=== PATIENT | male | born 1985 | race Caucasian/White ===

== ENCOUNTER → 2016-10-02 | Outpatient (CLI) | payer OTHER ==
[~2016-10-02] MED LIST: DARV100T; MOTR200T4; TYLENOL #3
== END ==
LOC: M OUTALCOH 09:41
PROVIDERS: ATTEND Psychiatry & Neurology Psychiatry
DX: Z13.9 Encounter for screening, unspecified (principal); F12.20 Cannabis dependence, uncomplicated

== ENCOUNTER 2016-11-01 14:00 | Outpatient (RCR) | payer OTHER | END 2016-11-04 | LOC: M OUTALCOH 14:00 | PROVIDERS: ATTEND Psychiatry & Neurology Psychiatry | DX: F12.20 Cannabis dependence, uncomplicated (principal); F17.200 Nicotine dependence, unspecified, uncomplicated ==

== ENCOUNTER → 2016-12-05 | Outpatient (RCR) | payer OTHER | LOC: M OUTALCOH 11-06 09:00 | PROVIDERS: ATTEND Psychiatry & Neurology Psychiatry | DX: F12.20 Cannabis dependence, uncomplicated (principal); F17.200 Nicotine dependence, unspecified, uncomplicated ==

== ENCOUNTER 2017-01-02 16:00 | Outpatient (RCR) | payer OTHER | END 2017-01-04 | LOC: M OUTALCOH 16:00 | PROVIDERS: ATTEND Psychiatry & Neurology Psychiatry | DX: F12.20 Cannabis dependence, uncomplicated (principal); F17.200 Nicotine dependence, unspecified, uncomplicated ==

== ENCOUNTER 2017-01-02 19:50 | Emergency (ER) | payer OTHER ==
[~2017-01-02] VITALS: Ht 167.6 cm; Wt 64.8 kg
[2017-01-02] MEDS ORDERED: IBUPROFEN 600 MG TAB PO ONE (21:00)
[2017-01-02 21:14] VITALS: BP 117/78
== END 2017-01-02 21:27 | disposition home or self-care (01) ==
LOC: M ED 19:50
DX: S50.12XA Contusion of left forearm, initial encounter (principal); X58.XXXA Exposure to other specified factors, initial encounter; Y92.019 Unspecified place in single-family (private) house as the place of occurrence of the external cause; Y93.9 Activity, unspecified; Y99.8 Other external cause status

== ENCOUNTER 2017-02-01 15:00 | Outpatient (RCR) | payer MEDICAID | END 2017-02-04 | LOC: M OUTALCOH 15:00 | PROVIDERS: ATTEND Psychiatry & Neurology Psychiatry | DX: F12.20 Cannabis dependence, uncomplicated (principal); F17.200 Nicotine dependence, unspecified, uncomplicated ==

== ENCOUNTER 2017-02-28 08:00 | Outpatient (RCR) | payer MEDICAID | END 2017-03-07 | LOC: M OUTALCOH 08:00 | PROVIDERS: ATTEND Psychiatry & Neurology Psychiatry | DX: F12.20 Cannabis dependence, uncomplicated (principal); F17.200 Nicotine dependence, unspecified, uncomplicated ==

== ENCOUNTER 2017-04-24 11:30 | Outpatient (RCR) | payer MEDICAID, SELFPAY | END 2017-05-07 | LOC: M OUTALCOH 11:30 | PROVIDERS: ATTEND Psychiatry & Neurology Psychiatry | DX: F12.20 Cannabis dependence, uncomplicated (principal); F17.200 Nicotine dependence, unspecified, uncomplicated ==

== ENCOUNTER 2017-08-20 21:07 | Emergency (ER) | payer MEDICAID | END 2017-08-20 22:12 | disposition left against medical advice (07) | LOC: M ED 21:07 | DX: R07.89 Other chest pain (principal); Z53.21 Procedure and treatment not carried out due to patient leaving prior to being seen by health care provider ==

== ENCOUNTER → 2017-09-09 | Outpatient (CLI) | payer MEDICAID | LOC: M OUTALCOH 07:59 | DX: F12.20 Cannabis dependence, uncomplicated (principal) ==

== ENCOUNTER 2017-09-19 09:11 | Outpatient (RCR) | payer MEDICAID | END 2017-10-05 | LOC: M OUTALCOH 09-24 16:00 | DX: F12.20 Cannabis dependence, uncomplicated (principal); F17.200 Nicotine dependence, unspecified, uncomplicated ==

== ENCOUNTER 2017-10-03 00:34 | Emergency (ER) | payer OTHER, MEDICAID ==
[2017-10-03] MEDS: KETOROLAC 60 MG/2 ML VIAL (J1885) IM (03:07)
== END 2017-10-03 04:13 | disposition home or self-care (01) ==
LOC: M ED 00:34
DX: M54.5 Low back pain (principal); Z76.5 Malingerer [conscious simulation]; J45.909 Unspecified asthma, uncomplicated; M54.2 Cervicalgia; G89.29 Other chronic pain; F17.200 Nicotine dependence, unspecified, uncomplicated
CPT/HCPCS: J1885

== ENCOUNTER 2017-10-09 14:51 | Outpatient (RCR) | payer MEDICAID | END 2017-11-04 | LOC: M OUTALCOH 14:51 | DX: F12.20 Cannabis dependence, uncomplicated (principal); F17.200 Nicotine dependence, unspecified, uncomplicated ==

== ENCOUNTER 2017-11-06 09:16 | Outpatient (RCR) | payer MEDICAID | END 2017-12-05 | LOC: M OUTALCOH 11-20 16:00 | DX: F12.20 Cannabis dependence, uncomplicated (principal); F17.200 Nicotine dependence, unspecified, uncomplicated ==

== ENCOUNTER 2017-12-19 15:02 | Outpatient (RCR) | payer MEDICAID | END 2018-01-04 | LOC: M OUTALCOH 01-03 13:00 | DX: F12.20 Cannabis dependence, uncomplicated (principal); F17.200 Nicotine dependence, unspecified, uncomplicated ==

== ENCOUNTER 2018-01-22 13:00 | Outpatient (RCR) | payer MEDICAID | END 2018-02-04 | LOC: M OUTALCOH 01-30 14:00 | DX: F12.20 Cannabis dependence, uncomplicated (principal); F17.200 Nicotine dependence, unspecified, uncomplicated ==

== ENCOUNTER 2018-12-01 01:44 | Emergency (ER) | payer MEDICAID, OTHER ==
[~2018-12-01] VITALS: Ht 167.6 cm; Wt 56.8 kg
[~2018-12-01 01:44] MED LIST changes: +KETO10TAB PO
[2018-12-01] MEDS ORDERED: SUBO8MIS (01:49)
[2018-12-01] MEDS ORDERED: ACET-839 PO (01:49)
[2018-12-01] MEDS ORDERED: BUPIVACAINE HCL 0.5% 10 ML VIAL SC ONE (04:30)
[2018-12-01] MEDS ORDERED: LIDOCAINE 1% SDV INJ 30 ML VIAL SC SCH (04:30)
[2018-12-01] MEDS: LIDOCAINE 1% MDV 20ML VIAL SC SCH ×2 (04:39→04:44)
[2018-12-01] MEDS ORDERED: IBUP80TA PO (04:41)
[2018-12-01] MEDS ORDERED: AUGM875T28 PO (04:41)
[2018-12-01] MEDS ORDERED: AUGMENTIN 875 MG TAB PO ONE (04:45)
[2018-12-01] MEDS ORDERED: KETOROLAC 60 MG/2 ML VIAL (J1885) IM ONE (04:45)
[2018-12-01 04:57] VITALS: BP 120/80
== END 2018-12-01 05:01 | disposition home or self-care (01) ==
LOC: M ED 01:44
DX: K04.7 Periapical abscess without sinus (principal); Z79.891 Long term (current) use of opiate analgesic; F17.210 Nicotine dependence, cigarettes, uncomplicated
CPT/HCPCS: 96372; 99283; J1885

== ENCOUNTER → 2019-07-20 | Outpatient (REF) | payer OTHER, MEDICAID ==
[~2019-07-20] MED LIST changes: +ACET-839 PO; +AUGM875T28 PO; +IBUP80TA PO; +SUBO8MIS
[2019-07-20 19:08] LABS: ALBUMIN 3.9 GM/DL (3.2-5.2); ALT/SGPT 21 U/L (12-78); BILIRUBIN,TOTAL 0.3 MG/DL (0.2-1.0); BLOOD UREA NITROGEN 17 MG/DL (7-18); CALCIUM LEVEL 9.1 MG/DL (8.5-10.1); CARBON DIOXIDE LEVEL 30 MEQ/L (21-32); CHLORIDE LEVEL 105 MEQ/L (98-107); CHOLESTEROL LEVEL 111 MG/DL (<200); CREATININE FOR GFR 0.94 MG/DL (0.70-1.30); FREE T4 0.74 NG/DL (0.76-1.46); GLOMERULAR FILTRATION RATE > 60.0 (>60); GLUCOSE, FASTING 84 MG/DL (70-100); HDL CHOLESTEROL 37 MG/DL (>40); LDL CHOLESTEROL 57 MG/DL (<100); NON-HDL-C 74 MG/DL; SODIUM LEVEL 140 MEQ/L (136-145); THYROID STIMULATING HORMONE 0.646 uIU/ML (0.358-3.740); TOTAL PROTEIN 6.9 GM/DL (6.4-8.2); TRIGLYCERIDES LEVEL 86 MG/DL (<150); URIC ACID 2.4 MG/DL (3.5-7.2)
[2019-07-20 19:09] LABS: TOTAL 25(OH) VITAMIN D 35.3 NG/ML (30.0-100.0)
[2019-07-20 19:10] LABS: BASO % 0.5 % (0.0-1.0); EOS # 0.2 10^3/uL (0.0-0.5); EOS % 2.8 % (0.0-3.0); HEMATOCRIT 44.1 % (42.0-52.0); HEMOGLOBIN 13.9 g/dl (13.5-17.5); LYMPH # 1.6 10^3/uL (1.5-5.0); LYMPH % 19.1 % (24.0-44.0); MEAN CORPUSCULAR HEMOGLOBIN 27.6 pg (27.0-33.0); MEAN CORPUSCULAR HGB CONC 31.5 g/dl (32.0-36.5); MEAN CORPUSCULAR VOLUME 87.5 fl (80.0-96.0); MONO # 0.5 10^3/uL (0.0-0.8); MONO % 5.8 % (0.0-5.0); NEUTROPHILS # 5.9 10^3/uL (1.5-8.5); NEUTROPHILS % 71.6 % (36.0-66.0); PLATELET COUNT, AUTOMATED 159 10^3/uL (150-450); RED BLOOD COUNT 5.04 10^6/uL (4.30-6.10); WHITE BLOOD COUNT 8.2 10^3/uL (4.0-10.0)
[2019-07-20 19:27] LABS: HEMOGLOBIN A1c 5.7 %
== END ==
LOC: M LAB REF 17:15
PROVIDERS: ATTEND Nurse Practitioner Family
DX: M79.673 Pain in unspecified foot (principal); Z13.9 Encounter for screening, unspecified; R06.09 Other forms of dyspnea; F17.200 Nicotine dependence, unspecified, uncomplicated; Z00.01 Encounter for general adult medical examination with abnormal findings; F41.8 Other specified anxiety disorders

== ENCOUNTER 2021-03-14 08:23 | Emergency (ER) | payer OTHER, MEDICAID ==
[~2021-03-14] VITALS: Ht 167.6 cm; Wt 59.1 kg
[2021-03-14] MEDS ORDERED: ADDE20TA PO (08:41)
[2021-03-14] MEDS ORDERED: ACETAMINOPHEN TAB 650MG DOSE (2X325MG) PO ONE (08:50)
[2021-03-14] MEDS ORDERED: NS 500 ML IV ONE (08:50)
[2021-03-14 09:19] LABS: BASO % 0.4 % (0.0-1.0); EOS # 0.2 10^3/uL (0.0-0.5); HEMATOCRIT 37.8 % (42.0-52.0); HEMOGLOBIN 13.1 g/dl (13.5-17.5); LYMPH # 1.1 10^3/uL (1.5-5.0); LYMPH % 15.5 % (24.0-44.0); MEAN CORPUSCULAR HEMOGLOBIN 30.3 pg (27.0-33.0); MEAN CORPUSCULAR HGB CONC 34.7 g/dl (32.0-36.5); MEAN CORPUSCULAR VOLUME 87.5 fl (80.0-96.0); MONO # 0.7 10^3/uL (0.0-0.8); MONO % 10.6 % (2.0-8.0); NEUTROPHILS # 4.9 10^3/uL (1.5-8.5); NEUTROPHILS % 70.4 % (36.0-66.0); PLATELET COUNT, AUTOMATED 154 10^3/uL (150-450); RED BLOOD COUNT 4.32 10^6/uL (4.30-6.10)
--- NOTE | 2021-03-14 09:41 | REP ---
INDICATION: R leg pain swelling r/o dvt. COMPARISON: None. TECHNIQUE: Multiple ultrasonographic images of the deep venous structures of the right lower extremity were obtained from the inguinal ligament to the ankle. Venous compression techniques, color doppler imaging, and augmentation techniques were also obtained where appropriate. As per the ACR guidelines the anterior tibial vein can not be effectively evaluated. Only compression techniques in the calf on the peroneal and posterior tibial veins was attempted/performed. FINDINGS: There is no abnormal echogenic material seen within any of the visualized deep venous structures that would suggest acute thrombosis. Coaptation is unremarkable throughout. Doppler interrogation shows an expected response to respiratory variability and augmentation in the thigh. Compression techniques in the calf were unobtainable. The color flow images show what appears to be a normal vascular pattern throughout the thigh. In the right groin a 2.9 x 0.8 x 2.6 cm sized solid nodule with peripheral decreased echoes and central increased echoes was identified IMPRESSION: There is no ultrasonographic evidence of deep venous thrombosis involving any of the visualized deep venous structures of the right lower extremity as described above. Due to technical parameters calf vein DVT can not be ruled out. Right groin lymph node as described above. <Electronically signed by Herve Mcmanus > 03/14/21 [id number]
[2021-03-14 10:00] LABS: ERYTHROCYTE SEDIMENTATION RATE 25 mm/hr (0-15)
[2021-03-14 10:08] LABS: BLOOD UREA NITROGEN 18 MG/DL (7-18); C REACTIVE PROTEIN QUANTITATIV 1.09 MG/DL (0.00-0.30); CALCIUM LEVEL 8.4 MG/DL (8.5-10.1); CARBON DIOXIDE LEVEL 30 MEQ/L (21-32); CHLORIDE LEVEL 105 MEQ/L (98-107); CREATININE FOR GFR 0.96 MG/DL (0.70-1.30); GLOMERULAR FILTRATION RATE > 60.0 (>60); GLUCOSE, FASTING 101 MG/DL (70-100); POTASSIUM SERUM 3.8 MEQ/L (3.5-5.1); SODIUM LEVEL 139 MEQ/L (136-145)
[2021-03-14] MEDS ORDERED: ceFAZolin SOD 1 GM in D5W MINI-BAG PLUS 50 ML IV ONE (10:35)
[2021-03-14] MEDS ORDERED: CEPH500C PO (10:40)
[2021-03-14 11:15] VITALS: BP 126/66
== END 2021-03-14 11:40 | disposition home or self-care (01) ==
LOC: M ED 08:23 → EDBD 08:23 → M ED 11:40
DX: L03.115 Cellulitis of right lower limb (principal); F11.20 Opioid dependence, uncomplicated; F17.200 Nicotine dependence, unspecified, uncomplicated; R19.09 Other intra-abdominal and pelvic swelling, mass and lump
CPT/HCPCS: 80048; 85025; 85652; 86140; 87040; 93041; 93971; 94760; 96365; 99285; J0690

== ENCOUNTER 2021-03-18 13:19 | Inpatient (IN) | payer MEDICAID, OTHER ==
[~2021-03-18] VITALS: Ht 167.6 cm; Wt 62.2 kg
[~2021-03-18 13:19] MED LIST changes: +ADDE20TA PO; +CEPH500C PO; -SUBO8MIS; +SUBO8MIS SL
[2021-03-18] MEDS: NS 1,000 ML IV SCH (15:23)
[2021-03-18 15:38] LABS: BASO % 0.5 % (0.0-1.0); EOS # 0.3 10^3/uL (0.0-0.5); HEMATOCRIT 39.7 % (42.0-52.0); HEMOGLOBIN 13.6 g/dl (13.5-17.5); LYMPH # 1.3 10^3/uL (1.5-5.0); LYMPH % 17.9 % (24.0-44.0); MEAN CORPUSCULAR HEMOGLOBIN 30.4 pg (27.0-33.0); MEAN CORPUSCULAR HGB CONC 34.3 g/dl (32.0-36.5); MEAN CORPUSCULAR VOLUME 88.6 fl (80.0-96.0); MONO # 0.5 10^3/uL (0.0-0.8); NEUTROPHILS # 5.1 10^3/uL (1.5-8.5); NEUTROPHILS % 70.2 % (36.0-66.0); PLATELET COUNT, AUTOMATED 204 10^3/uL (150-450); RED BLOOD COUNT 4.48 10^6/uL (4.30-6.10); WHITE BLOOD COUNT 7.3 10^3/uL (4.0-10.0)
--- NOTE | 2021-03-18 16:00 | REP ---
INDICATION: R LOWER LEG SWELLING R/O DVT COMPARISON: 03/14/2021. TECHNIQUE: Real time compression and duplex Doppler interrogation of the right lower extremity deep venous system is performed, including the left common femoral vein.Compression of the right peroneal and posterior tibial veins is performed. FINDINGS: The right common femoral, superficial femoral and popliteal veins are fully compressible with transducer pressure and demonstrate normal spontaneous and phasic flow, without evidence of deep venous thrombosis.The left common femoral vein demonstrates no thrombus.The visualized right peroneal and posterior tibial veins demonstrate no thrombus. IMPRESSION: No evidence of deep venous thrombosis of the right lower extremity femoral popliteal venous system.The visualized right peroneal and posterior tibial veins demonstrate no thrombus. <Electronically signed by Sanjay Rose > 03/18/21 [id number]
[2021-03-18 16:03] LABS: ALBUMIN 3.3 GM/DL (3.2-5.2); ALT/SGPT 35 U/L (12-78); AMYLASE 49 U/L (25-115); BILIRUBIN,DIRECT < 0.1 MG/DL (0.0-0.2); BILIRUBIN,TOTAL 0.2 MG/DL (0.2-1.0); BLOOD UREA NITROGEN 15 MG/DL (7-18); C REACTIVE PROTEIN QUANTITATIV 0.84 MG/DL (0.00-0.30); CALCIUM LEVEL 8.8 MG/DL (8.5-10.1); CARBON DIOXIDE LEVEL 33 MEQ/L (21-32); CHLORIDE LEVEL 104 MEQ/L (98-107); CREATININE FOR GFR 0.94 MG/DL (0.70-1.30); GLOMERULAR FILTRATION RATE > 60.0 (>60); GLUCOSE, FASTING 113 MG/DL (70-100); POTASSIUM SERUM 4.2 MEQ/L (3.5-5.1); SODIUM LEVEL 141 MEQ/L (136-145); TOTAL PROTEIN 6.8 GM/DL (6.4-8.2)
--- NOTE | 2021-03-18 16:13 | REP ---
INDICATION: R LOWER LEG PAIN, SWELLING, ATRAUMATIC COMPARISON: None. TECHNIQUE: AP and lateral right lower leg. FINDINGS: There is no evidence of acute fracture, dislocation, or intrinsic bone disease. IMPRESSION: Negative exam right lower leg. <Electronically signed by Sanjay Rose > 03/18/21 [id number]
--- NOTE | 2021-03-18 16:14 | REP ---
INDICATION: R LOWER LEG PAIN, SWELLING, ATRAUMATIC COMPARISON: None. TECHNIQUE: Four views right ankle. FINDINGS: There is no evidence of acute fracture, dislocation, or intrinsic bone disease.The ankle mortise is anatomic. IMPRESSION: Negative right ankle series. <Electronically signed by Sanjay Rose > 03/18/21 [id number]
--- NOTE | 2021-03-18 16:16 | REP ---
INDICATION: R LOWER LEG PAIN, SWELLING, ATRAUMATIC COMPARISON: 02/06/2015. TECHNIQUE: Four views right foot. FINDINGS: There is no evidence of acute fracture, dislocation, or intrinsic bone disease. IMPRESSION: Negative right foot series. <Electronically signed by Sanjay Rose > 03/18/21 [id number]
[2021-03-18] MEDS ORDERED: VANCOMYCIN HCL 1,250 MG in IV FLUID PLACE HOLDER 1 EA IV ONE (16:35)
[2021-03-18] MEDS ORDERED: cefTRIAXone SOD 2 GM in D5W MINI-BAG PLUS 50 ML IV ONE (16:35)
[2021-03-18] MEDS ORDERED: IBUPROFEN 800 MG TAB PO ONE (16:35)
[2021-03-18 17:49] LABS: RSV AMPLIFICATION NEGATIVE (NEGATIVE)
[2021-03-18] MEDS ORDERED: VANCOMYCIN HCL 750 MG, VIAL MATE ADAPTER 1 EACH in NS 250 ML IV ONE (18:00)
[2021-03-18] MEDS ORDERED: CEPH500C PO (18:45)
[2021-03-18] MEDS ORDERED: med rec comment (18:46)
[2021-03-18] MEDS ORDERED: HOME MED LIST COMPLETE! XX SCH (18:50)
[2021-03-18] MEDS ORDERED: VANCOMYCIN HCL 500 MG in D5W MINI-BAG PLUS 100 ML IV ONE (19:00)
[2021-03-18 20:30] VITALS: BP 127/81
[2021-03-18] MEDS ORDERED: ACETAMINOPHEN TAB 650MG DOSE (2X325MG) PO PRN (21:15)
[2021-03-18] MEDS ORDERED: PERCOCET 5MG/325MG TAB PO PRN (21:15)
[2021-03-18] MEDS: NICOTINE 21MG/24HR 1 EA TRANSDERMAL TD SCH (22:28)
[2021-03-18] MEDS: KETOROLAC 30 MG/ML 1ML VIAL IV PRN (22:29)
[2021-03-19] MEDS: NS 1,000 ML IV SCH ×2 (03:04→11:21)
[2021-03-19] MEDS: CEFTAROLINE FOSAMIL 600 MG in D5W MINI-BAG PLUS 50 ML IV SCH ×2 (04:16→17:17)
[2021-03-19 05:44] LABS: MEAN CORPUSCULAR HGB CONC 34.2 g/dl (32.0-36.5); MEAN CORPUSCULAR VOLUME 87.8 fl (80.0-96.0); PLATELET COUNT, AUTOMATED 188 10^3/uL (150-450); RED BLOOD COUNT 4.33 10^6/uL (4.30-6.10); WHITE BLOOD COUNT 6.3 10^3/uL (4.0-10.0)
[2021-03-19 06:00] VITALS: BP 120/76
[2021-03-19 06:15] LABS: BLOOD UREA NITROGEN 13 MG/DL (7-18); CALCIUM LEVEL 8.3 MG/DL (8.5-10.1); CARBON DIOXIDE LEVEL 28 MEQ/L (21-32); CHLORIDE LEVEL 108 MEQ/L (98-107); CREATININE FOR GFR 0.78 MG/DL (0.70-1.30); GLOMERULAR FILTRATION RATE > 60.0 (>60); GLUCOSE, FASTING 108 MG/DL (70-100); POTASSIUM SERUM 4.3 MEQ/L (3.5-5.1); SODIUM LEVEL 141 MEQ/L (136-145)
[2021-03-19] MEDS: NICOTINE 21MG/24HR 1 EA TRANSDERMAL TD SCH (08:12)
[2021-03-19] MEDS: ENOXAPARIN 40MG/0.4ML SYRINGE (J1650 PER 10MG) SC SCH (08:12)
--- NOTE | 2021-03-19 09:26 | HPE ---
HISTORY AND PHYSICAL DATE OF ADMISSION: 03/18/2021 CHIEF COMPLAINT: Cellulitis right lower extremity. HISTORY: Chu Gomez is being admitted with cellulitis of his right lower extremity. History is obtained from the patient and there are some inconsistencies so his history is somewhat suspect. He says for 2 weeks he has had right lower extremity redness, pain, and swelling. He says that this has not been treated or evaluated. However, he was in the emergency room 4 days ago, given a gram of Ancef, and discharged on Keflex and had lab work done. He does not recall this having occurred. He has a history of chronic substance abuse and attention deficit hyperactivity disorder (ADHD). He is on Suboxone and Adderall from Dr. Bonilla. He had been treated in the emergency room in the last few years. He has chronic low back pain. MEDICATIONS: - Suboxone 8 mg/2 mg one film dose apparently daily - Adderall 20 mg twice a day ALLERGIES: Unknown. REVIEW OF SYSTEMS: No fever, chills, night sweats, chest pain, or shortness of breath. FAMILY HISTORY: Noncontributory. PHYSICAL EXAMINATION: Vital signs per flow sheet, he is afebrile. General appearance: Alert, conversant, in no distress. HEENT: Unremarkable. Lungs: Clear. Heart: Regular rate, without murmur. Abdomen: Soft, nontender, no masses. No peripheral edema. Normal strength in the arms and legs. Right pretibial area has a confluent erythematous rash, slightly warm. LABORATORY DATA: CBC unremarkable, white count normal. Electrolytes unremarkable. Hemoglobin A1c done a year ago was 5.7, random blood sugar is normal. IMPRESSION: 1. Cellulitis right lower extremity. He will be admitted to a medical bed and started on ceftaroline. Will get a methicillin-resistant Staphylococcus aureus (MRSA) screen, if it is negative he can be switched back over to Ancef. 2. Substance abuse. Continue current regimen. 3. Attention deficit hyperactivity disorder (ADHD). Continue his Adderall.
[2021-03-19] MEDS: BUPRENORPHINE/NALOXONE 8-2MG SUBLINGUAL TABLET(SUBOXONE) SL SCH (10:28)
[2021-03-19] MEDS: ADDERALL 5 MG TAB PO SCH ×2 (10:29→14:54)
[2021-03-19 14:00] VITALS: BP 122/76
--- NOTE | 2021-03-19 16:19 | IPN ---
PROGRESS NOTE DATE: 03/19/2021 SUBJECTIVE: Chu's right lower extremity erythema is minimally improved. He has less swelling in his leg. PHYSICAL EXAMINATION: Afebrile, vital signs stable. Right lower extremity erythema is perhaps a millimeter or two regressed from yesterday. LABORATORY DATA: White count 6.3. Electrolytes unremarkable. IMPRESSION: 1. Cellulitis right lower extremity. Continue his Ceftaroline 600 mg b.i.d. 2. History of opiate addiction: Continue his Suboxone 8/2 films daily. 3. ADHD: Continue Adderall 20 mg b.i.d. I got distracted yesterday and did not order that, but we did get the order in today.
[2021-03-19 22:00] VITALS: BP 121/61
[2021-03-20] MEDS: NS 1,000 ML IV SCH ×2 (01:09→11:11)
[2021-03-20] MEDS: KETOROLAC 30 MG/ML 1ML VIAL IV PRN (01:10)
[2021-03-20] MEDS: CEFTAROLINE FOSAMIL 600 MG in D5W MINI-BAG PLUS 50 ML IV SCH (04:43)
[2021-03-20 05:56] LABS: HEMATOCRIT 37.4 % (42.0-52.0); HEMOGLOBIN 12.4 g/dl (13.5-17.5); MEAN CORPUSCULAR HEMOGLOBIN 29.5 pg (27.0-33.0); MEAN CORPUSCULAR HGB CONC 33.2 g/dl (32.0-36.5); PLATELET COUNT, AUTOMATED 195 10^3/uL (150-450); WHITE BLOOD COUNT 6.4 10^3/uL (4.0-10.0)
[2021-03-20 06:00] VITALS: BP 116/75
[2021-03-20] MEDS ORDERED: IBUPROFEN 800 MG TAB PO ONE (06:05)
[2021-03-20 06:16] LABS: BLOOD UREA NITROGEN 14 MG/DL (7-18); CALCIUM LEVEL 8.4 MG/DL (8.5-10.1); CARBON DIOXIDE LEVEL 29 MEQ/L (21-32); CHLORIDE LEVEL 108 MEQ/L (98-107); CREATININE FOR GFR 0.88 MG/DL (0.70-1.30); GLOMERULAR FILTRATION RATE > 60.0 (>60); GLUCOSE, FASTING 101 MG/DL (70-100); POTASSIUM SERUM 4.2 MEQ/L (3.5-5.1); SODIUM LEVEL 142 MEQ/L (136-145)
[2021-03-20] MEDS ORDERED: PANTOPRAZOLE 40MG TAB (PROTONIX) PO SCH (09:00)
[2021-03-20] MEDS: BUPRENORPHINE/NALOXONE 8-2MG SUBLINGUAL TABLET(SUBOXONE) SL SCH (09:26)
[2021-03-20] MEDS: NICOTINE 21MG/24HR 1 EA TRANSDERMAL TD SCH (09:26)
[2021-03-20] MEDS: ADDERALL 5 MG TAB PO SCH (09:26)
[2021-03-20] MEDS: ENOXAPARIN 40MG/0.4ML SYRINGE (J1650 PER 10MG) SC SCH (09:26)
[2021-03-20] MEDS ORDERED: CEPH500C PO (10:51)
[2021-03-20] MEDS ORDERED: KETOROLAC 30 MG/ML 1ML VIAL IV PRN (12:00)
--- NOTE | 2021-03-20 12:50 | DSES ---
DISCHARGE SUMMARY DATE OF ADMISSION: 03/18/2021 DATE OF DISCHARGE: 03/20/2021 PRINCIPAL DIAGNOSIS: Cellulitis right lower leg. HISTORY: Patient was admitted with cellulitis right lower leg. HOSPITAL COURSE: Admitted to a medical bed and started on ceftaroline and had a good response to this. Redness improved significantly. Swelling of his leg dissipated. He ran no fever. Day of discharge he is eager to go home. The leg does not hurt anymore, and the redness is much improved. DISPOSITION: He was discharged home in improved and stable condition. He will follow up with the primary care provider to be scheduled by the hospitalist linux support engineer. Should follow up in a week. His activity is as tolerated elevating the leg when at rest, walking as much as possible to prevent DVT. He will resume Keflex 500 mg q.i.d. Continue Suboxone two films daily and Adderall 20 mg b.i.d. At the time of this dictation no pending labs.
== END 2021-03-20 14:37 | disposition home or self-care (01) | DRG 383 ==
LOC: M ED 13:19 → M ED INP 18:19 → ENRESERV 19:23 → M MSPAV 20:34
PROVIDERS: ADMIT Family Medicine; ATTEND Family Medicine
DX: L03.115 Cellulitis of right lower limb (principal); F11.10 Opioid abuse, uncomplicated; F98.8 Other specified behavioral and emotional disorders with onset usually occurring in childhood and adolescence

== ENCOUNTER 2021-08-04 22:28 | Emergency (ER) | payer OTHER ==
[~2021-08-04] VITALS: Ht 167.6 cm; Wt 63.6 kg
[~2021-08-04 22:28] MED LIST changes: +med rec comment
[2021-08-04 23:46] LABS: BASO # 0.1 10^3/uL (0.0-0.2); BASO % 0.7 % (0.0-1.0); EOS # 0.3 10^3/uL (0.0-0.5); EOS % 3.6 % (0.0-3.0); HEMATOCRIT 41.3 % (42.0-52.0); HEMOGLOBIN 13.8 g/dl (13.5-17.5); LYMPH % 27.9 % (24.0-44.0); MEAN CORPUSCULAR HEMOGLOBIN 27.9 pg (27.0-33.0); MEAN CORPUSCULAR HGB CONC 33.4 g/dl (32.0-36.5); MEAN CORPUSCULAR VOLUME 83.6 fl (80.0-96.0); MONO # 0.6 10^3/uL (0.0-0.8); MONO % 8.7 % (2.0-8.0); NEUTROPHILS # 4.2 10^3/uL (1.5-8.5); PLATELET COUNT, AUTOMATED 185 10^3/uL (150-450); RED BLOOD COUNT 4.94 10^6/uL (4.30-6.10); WHITE BLOOD COUNT 7.1 10^3/uL (4.0-10.0)
[2021-08-05 00:07] LABS: BLOOD UREA NITROGEN 24 MG/DL (7-18); C REACTIVE PROTEIN QUANTITATIV 0.38 MG/DL (0.00-0.30); CARBON DIOXIDE LEVEL 33 MEQ/L (21-32); CHLORIDE LEVEL 106 MEQ/L (98-107); CREATININE FOR GFR 1.11 MG/DL (0.70-1.30); ERYTHROCYTE SEDIMENTATION RATE 17 mm/hr (0-15); GLOMERULAR FILTRATION RATE > 60.0 (>60); GLUCOSE, FASTING 96 MG/DL (70-100); POTASSIUM SERUM 4.2 MEQ/L (3.5-5.1); SODIUM LEVEL 142 MEQ/L (136-145)
[2021-08-05 02:01] VITALS: BP 149/85
== END 2021-08-05 02:15 | disposition home or self-care (01) ==
LOC: M ED 22:28
DX: S82.64XA Nondisplaced fracture of lateral malleolus of right fibula, initial encounter for closed fracture (principal); X58.XXXA Exposure to other specified factors, initial encounter; Y92.9 Unspecified place or not applicable; Y93.9 Activity, unspecified; Y99.9 Unspecified external cause status; F19.10 Other psychoactive substance abuse, uncomplicated; F17.200 Nicotine dependence, unspecified, uncomplicated

== ENCOUNTER 2022-08-02 23:50 | Emergency (ER) | payer OTHER ==
[~2022-08-02] VITALS: Ht 167.6 cm; Wt 64.8 kg
[2022-08-02 23:52] VITALS: BP 123/81
[2022-08-03] MEDS ORDERED: DALBAVANCIN 1,500 MG in D5W 250 ML IV ONE (02:55)
[2022-08-03] MEDS ORDERED: MORPHINE 2 MG/ML 1ML VIAL IV ONE (02:55)
[2022-08-03] MEDS ORDERED: ISOVUE-370 76% 100ML VIAL As Ordered ONE (03:02)
[2022-08-03 03:28] LABS: BASO % 0.5 % (0.0-1.0); EOS # 0.4 10^3/uL (0.0-0.5); EOS % 4.6 % (0.0-3.0); HEMATOCRIT 40.6 % (42.0-52.0); HEMOGLOBIN 13.6 g/dl (13.5-17.5); LYMPH # 1.9 10^3/uL (1.5-5.0); LYMPH % 24.4 % (24.0-44.0); MEAN CORPUSCULAR HEMOGLOBIN 28.3 pg (27.0-33.0); MEAN CORPUSCULAR HGB CONC 33.5 g/dl (32.0-36.5); MEAN CORPUSCULAR VOLUME 84.6 fl (80.0-96.0); MONO # 0.6 10^3/uL (0.0-0.8); MONO % 8.3 % (2.0-8.0); NEUTROPHILS # 4.7 10^3/uL (1.5-8.5); NEUTROPHILS % 61.8 % (36.0-66.0); PLATELET COUNT, AUTOMATED 189 10^3/uL (150-450); WHITE BLOOD COUNT 7.6 10^3/uL (4.0-10.0)
[2022-08-03] MEDS ORDERED: TRAM50TA2 PO (05:49)
== END 2022-08-03 06:08 | disposition home or self-care (01) ==
LOC: M ED 23:50
DX: L97.529 Non-pressure chronic ulcer of other part of left foot with unspecified severity (principal); F17.200 Nicotine dependence, unspecified, uncomplicated; J45.909 Unspecified asthma, uncomplicated; F41.9 Anxiety disorder, unspecified; F12.10 Cannabis abuse, uncomplicated; F10.10 Alcohol abuse, uncomplicated; Z79.891 Long term (current) use of opiate analgesic
CPT/HCPCS: 73701; 80047; 85025; 86140; 96374; 96375; 99282; J0875

== ENCOUNTER 2023-01-19 14:02 | Inpatient (IN) | payer OTHER ==
[~2023-01-19] VITALS: Ht 167.6 cm; Wt 59.4 kg
[~2023-01-19 14:02] MED LIST changes: +TRAM50TA2 PO
[2023-01-19] MEDS ORDERED: NS 1,770 ML in IV 1 EA IV ONE (14:35)
[2023-01-19 15:31] LABS: VENOUS BASE EXCESS 2.1 (-2.0-2.0); VENOUS HCO3 25.3 MMOL/L (23.0-27.0); VENOUS O2 SATURATION 70.7 % (60.0-80.0); VENOUS PARTIAL PRESSURE CO2 35.5 mmHg (38.0-50.0); VENOUS PARTIAL PRESSURE O2 32.4 mmHg (30.0-50.0); VENOUS PH 7.471 UNITS (7.330-7.430); VENOUS STANDARD HCO3 25.6 MMOL/L; VENOUS TOTAL CO2 26.4 MMOL/L (24.0-28.0)
[2023-01-19 15:40] LABS: HEMATOCRIT 41.8 % (42.0-52.0); HEMOGLOBIN 14.7 g/dl (13.5-17.5); MEAN CORPUSCULAR HEMOGLOBIN 29.1 pg (27.0-33.0); MEAN CORPUSCULAR HGB CONC 35.2 g/dl (32.0-36.5); MEAN CORPUSCULAR VOLUME 82.8 fl (80.0-96.0); RED BLOOD COUNT 5.05 10^6/uL (4.30-6.10)
[2023-01-19 15:50] LABS: PARTIAL THROMBOPLASTIN TIME 31.3 SECONDS (24.8-34.2); PROTHROMBIN TIME 13.4 SECONDS (12.5-14.5)
[2023-01-19 15:56] LABS: APPEARANCE, URINE CLEAR (CLEAR); BACTERIA, URINE AUTO NEGATIVE (NEGATIVE); BILIRUBIN, URINE AUTO NEGATIVE (NEGATIVE); BLOOD, URINE BLOOD NEGATIVE (NEGATIVE); COLOR, URINE YELLOW (YELLOW); GLUCOSE, URINE (UA) AUTO NEGATIVE (NEGATIVE); KETONE, URINE AUTO TRACE mg/dL (NEGATIVE); LEUKOCYTE ESTERASE, URINE AUTO NEGATIVE (NEGATIVE); MUCUS, URINE SMALL (NEGATIVE); NITRITE, URINE AUTO NEGATIVE (NEGATIVE); PROTEIN, URINE AUTO NEGATIVE (NEGATIVE); RBC, URINE AUTO 1 /HPF (0-3); SPECIFIC GRAVITY URINE AUTO 1.016 (1.002-1.035); SQUAMOUS EPITHELIAL CELL UR AU 0 /HPF (0-6); WBC, URINE AUTO 1 /HPF (0-3)
[2023-01-19 16:00] LABS: CK-MB VALUE MASS < 1.0 NG/ML (<3.6)
[2023-01-19 16:03] LABS: ALBUMIN 3.4 G/DL (3.2-5.2); ALKALINE PHOSPHATASE 102 U/L (46-116); ALT/SGPT 103 U/L (7.0-40); AST/SGOT 115 U/L (<34); BILIRUBIN,DIRECT 0.5 MG/DL (<0.4); BLOOD UREA NITROGEN 15 MG/DL (9-23); CALCIUM LEVEL 8.4 MG/DL (8.5-10.1); CARBON DIOXIDE LEVEL 23 MMOL/L (20-31); CHLORIDE LEVEL 102 MMOL/L (98-107); CPK CREATINE PHOSPHOKINASE 63 U/L (46-171); CREATININE FOR GFR 0.74 MG/DL (0.70-1.30); GLOMERULAR FILTRATION RATE > 60.0 (>60); GLUCOSE, FASTING 139 MG/DL (60-100); MB/CK RELATIVE INDEX 1.58 (< OR =4); POTASSIUM SERUM 3.6 MMOL/L (3.5-5.1); SODIUM LEVEL 137 MMOL/L (136-145); TOTAL PROTEIN 6.6 G/DL (5.7-8.2)
[2023-01-19 16:04] LABS: LYMPHOCYTES 10 % (16-44); METAMYELOCYTES 1 % (0-0); NEUTROPHILS 79 % (28-66); PLATELET CLUMPS MODERATE AMT; PLATELET ESTIMATE INVALID (NORMAL)
[2023-01-19 16:09] LABS: PROCALCITONIN 1.71 ng/ml
[2023-01-19] MEDS ORDERED: ACETAMINOPHEN TAB 650MG DOSE (2X325MG) PO ONE (16:15)
[2023-01-19 16:16] LABS: HEPATITIS B SURFACE ANTIGEN NEGATIVE (NEGATIVE)
[2023-01-19 16:29] LABS: HIV 1&2 SCREEN NEGATIVE (NEGATIVE)
[2023-01-19] MEDS ORDERED: LORazepam 2 MG/ML 1ML VIAL IV STA ×4 (16:32→18:53)
[2023-01-19 16:38] LABS: HEPATITIS B CORE ANTIBODY IGM NEGATIVE (NEGATIVE)
[2023-01-19 16:43] LABS: HEPATITIS C VIRUS ABY INDEX > 11.00 INDEX (<0.8)
[2023-01-19] MEDS ORDERED: OLANZapine ORAL DISINTEGRATING TAB 5MG PO ONE (17:55)
[2023-01-19] MEDS ORDERED: KETOROLAC 30 MG/ML 1ML VIAL IV ONE (18:25)
[2023-01-19] MEDS ORDERED: cefTRIAXone SOD 2 GM in D5W MINI-BAG PLUS 50 ML IV ONE (18:35)
[2023-01-19] MEDS: LORazepam 2 MG/ML 1ML VIAL IV PRN ×3 (19:12→19:44)
[2023-01-19] MEDS ORDERED: DEXMEDETOMIDINE IV ONE (19:55)
[2023-01-19] MEDS ORDERED: dexmedeTOMIDine (4MCG/ML)200MCG/50ML BTL (PRECEDEX) As Ordered ONE (19:58)
[2023-01-19] MEDS ORDERED: BENZOIN TINCTURE 60ML BTL TOP STA (20:01)
[2023-01-19] MEDS: dexmedeTOMidine 200 MCG in IV 1 EA IV SCH ×2 (20:05→23:27)
[2023-01-19 20:13] LABS: BARBITURATES URINE NEGATIVE (NEGATIVE); BENZODIAZEPINES URINE NEGATIVE (NEGATIVE); COCAINE METABOLITE URINE NEGATIVE (NEGATIVE); METHADONE URINE NEGATIVE (NEGATIVE); OPIATES URINE NEGATIVE (NEGATIVE); PHENCYCLIDINE URINE NEGATIVE (NEGATIVE)
[2023-01-19 20:16] LABS: AMPHETAMINES LEVEL URINE POSITIVE (NEGATIVE); CANNABINOIDS URINE POSITIVE (NEGATIVE)
[2023-01-19] MEDS ORDERED: ETOMIDATE INJ 20MG/10ML VIAL IV ONE (20:30)
[2023-01-19] MEDS ORDERED: SUCCINYLCHOLINE INJ 200MG/10ML VIAL IV ONE (20:30)
[2023-01-19] MEDS: MIDAZOLAM 100MG/100ML-0.9%NACL 100 MG in IV 1 EA IV SCH ×2 (20:40→23:58)
[2023-01-19] MEDS ORDERED: NS 500 ML IV ONE (20:50)
[2023-01-19] MEDS ORDERED: ROCURONIUM BROMIDE 50MG/5ML VIAL IV ONE (20:55)
[2023-01-19 21:37] LABS: ABG BASE EXCESS -1.6 (-2.0-2.0); ABG HCO3 22.2 MMOL/L (22.0-26.0); ABG O2 SATURATION 99.1 % (95.0-99.0); ABG PARTIAL PRESSURE CO2 34.7 mmHg (35.0-45.0); ABG STANDARD HCO3 23.2 MMOL/L. (22.0-26.0); ABG TOTAL CO2 23.2 MMOL/L (22.0-29.0); ABG pH (ARTERIAL) 7.423 UNITS (7.350-7.450)
[2023-01-19] MEDS ORDERED: fentaNYL 100 MCG/2 ML INJECTION As Ordered ONE ×2 (21:48→23:03)
[2023-01-19] MEDS: fentaNYL 100 MCG/2 ML INJECTION IV PRN ×3 (21:54→23:00)
[2023-01-19] MEDS ORDERED: MED HIST COMMENT (22:41)
[2023-01-19] MEDS ORDERED: NS 1,000 ML IV SCH (22:45)
[2023-01-19] MEDS ORDERED: HOME MED LIST COMPLETE! XX SCH (22:45)
[2023-01-19] MEDS ORDERED: fentaNYL 100 MCG/2 ML INJECTION IV PRN (23:05)
[2023-01-19] MEDS ORDERED: PROPOFOL 1,000 MG/100 ML VIAL As Ordered ONE (23:30)
[2023-01-19] MEDS ORDERED: KETAMINE HCL 200MG/20ML VIAL IV ONE (23:45)
[2023-01-19] MEDS ORDERED: MIDAZOLAM INJ 2MG/2ML VIAL IV ONE ×3 (23:55)
[2023-01-20] VITALS (22 sets, daily range): BP systolic 109–162; BP diastolic 55–99; TEMP 97.6–98.7; O2SAT 96–100
[2023-01-20] MEDS: dexmedeTOMidine 200 MCG in IV 1 EA IV SCH (00:12)
[2023-01-20] MEDS: propofoL 1,000 MG in IV 1 EA IV SCH ×6 (00:45→21:30)
[2023-01-20] MEDS: NS 1,000 ML IV SCH ×3 (01:37→20:06)
[2023-01-20 01:58] LABS: ABG BASE EXCESS -2.4 (-2.0-2.0); ABG HCO3 22.3 MMOL/L (22.0-26.0); ABG O2 SATURATION 98.1 % (95.0-99.0); ABG PARTIAL PRESSURE CO2 38.3 mmHg (35.0-45.0); ABG PARTIAL PRESSURE O2 113.7 mmHg (75.0-100.0); ABG STANDARD HCO3 22.5 MMOL/L. (22.0-26.0); ABG TOTAL CO2 23.5 MMOL/L (22.0-29.0); ABG pH (ARTERIAL) 7.383 UNITS (7.350-7.450)
[2023-01-20 05:51] LABS: HEMOGLOBIN 12.7 g/dl (13.5-17.5); MEAN CORPUSCULAR HEMOGLOBIN 28.9 pg (27.0-33.0); MEAN CORPUSCULAR HGB CONC 34.3 g/dl (32.0-36.5); MEAN CORPUSCULAR VOLUME 84.3 fl (80.0-96.0); RED BLOOD COUNT 4.39 10^6/uL (4.30-6.10); WHITE BLOOD COUNT 6.8 10^3/uL (4.0-10.0)
[2023-01-20 06:10] LABS: ALBUMIN 2.5 G/DL (3.2-5.2); ALKALINE PHOSPHATASE 120 U/L (46-116); ALT/SGPT 108 U/L (7.0-40); AST/SGOT 109 U/L (<34); BILIRUBIN,TOTAL 0.3 MG/DL (0.3-1.2); BLOOD UREA NITROGEN 12 MG/DL (9-23); CALCIUM LEVEL 7.9 MG/DL (8.5-10.1); CARBON DIOXIDE LEVEL 23 MMOL/L (20-31); CHLORIDE LEVEL 115 MMOL/L (98-107); CREATININE FOR GFR 0.66 MG/DL (0.70-1.30); GLOMERULAR FILTRATION RATE > 60.0 (>60); GLUCOSE, FASTING 86 MG/DL (60-100); MAGNESIUM LEVEL 1.8 MG/DL (1.8-2.4); POTASSIUM SERUM 3.9 MMOL/L (3.5-5.1); SODIUM LEVEL 144 MMOL/L (136-145); TOTAL PROTEIN 5.1 G/DL (5.7-8.2)
[2023-01-20] MEDS ORDERED: ROCURONIUM BROMIDE 50MG/5ML VIAL ONE (06:28)
[2023-01-20] MEDS ORDERED: NS 1,000 ML IV ONE (06:50)
[2023-01-20 06:53] LABS: PLTBLUE- EDTA FREE CALC 66 K/mm3 (172-450)
[2023-01-20 07:15] LABS: PLTBLUE- EDTA FREE MACHINE 60 10^3/uL (172-450)
[2023-01-20] MEDS: VANCOMYCIN HCL 1,000 MG, VIAL MATE ADAPTER 1 EACH in D5W 250 ML IV SCH ×3 (07:35→23:02)
[2023-01-20] MEDS: CHLORHEXIDINE GLUCONATE 0.12 % 15ML UDC (PERIDEX ORAL RINSE) MT SCH ×2 (09:38→20:05)
[2023-01-20] MEDS: INSULIN LISPRO (NovoLOG) PER UNIT SC SCH ×3 (12:00→23:02)
[2023-01-20] MEDS: HEPARIN SOD (PORCINE) 5000UNITS/ML 1ML VIAL/SYRINGE SC SCH ×2 (12:16→20:05)
[2023-01-20] MEDS ORDERED: GLUCAGON INJ 1MG VIAL SC PRN (14:10)
[2023-01-20] MEDS ORDERED: DEXTROSE 50% 50ML SYRINGE IV PRN (14:10)
[2023-01-20] MEDS ORDERED: GLUCOSE 4GM CHEW TABLET PO PRN (14:10)
[2023-01-20] MEDS: cefTRIAXone SOD 2 GM in D5W MINI-BAG PLUS 50 ML IV SCH (17:41)
[2023-01-21] VITALS (13 sets, daily range): BP systolic 132–155; BP diastolic 80–99; TEMP 97.6–100.7; O2SAT 94–99
[2023-01-21] MEDS: propofoL 1,000 MG in IV 1 EA IV SCH ×2 (00:59→04:52)
[2023-01-21 05:50] LABS: ABG HCO3 22.1 MMOL/L (22.0-26.0); ABG O2 SATURATION 96.9 % (95.0-99.0); ABG PARTIAL PRESSURE CO2 29.5 mmHg (35.0-45.0); ABG PARTIAL PRESSURE O2 85.9 mmHg (75.0-100.0); ABG STANDARD HCO3 24.4 MMOL/L. (22.0-26.0); ABG pH (ARTERIAL) 7.493 UNITS (7.350-7.450)
[2023-01-21] MEDS: INSULIN LISPRO (NovoLOG) PER UNIT SC SCH (06:01)
[2023-01-21] MEDS: VANCOMYCIN HCL 1,000 MG, VIAL MATE ADAPTER 1 EACH in D5W 250 ML IV SCH ×3 (06:02→23:05)
[2023-01-21] MEDS: NS 1,000 ML IV SCH ×2 (06:04→13:40)
[2023-01-21 07:01] LABS: BASO % 0.1 % (0.0-1.0); EOS % 0.1 % (0.0-3.0); HEMATOCRIT 40.4 % (42.0-52.0); HEMOGLOBIN 14.1 g/dl (13.5-17.5); LYMPH # 1.1 10^3/uL (1.5-5.0); MEAN CORPUSCULAR HEMOGLOBIN 29.1 pg (27.0-33.0); MEAN CORPUSCULAR HGB CONC 34.9 g/dl (32.0-36.5); MEAN CORPUSCULAR VOLUME 83.3 fl (80.0-96.0); MONO # 0.4 10^3/uL (0.0-0.8); MONO % 4.9 % (2.0-8.0); NEUTROPHILS # 6.5 10^3/uL (1.5-8.5); NEUTROPHILS % 80.4 % (36.0-66.0); RED BLOOD COUNT 4.85 10^6/uL (4.30-6.10)
[2023-01-21 07:48] LABS: ALBUMIN 2.7 G/DL (3.2-5.2); ALKALINE PHOSPHATASE 114 U/L (46-116); ALT/SGPT 89 U/L (7.0-40); AST/SGOT 50 U/L (<34); BILIRUBIN,TOTAL 0.3 MG/DL (0.3-1.2); BLOOD UREA NITROGEN 9 MG/DL (9-23); CALCIUM LEVEL 8.1 MG/DL (8.5-10.1); CARBON DIOXIDE LEVEL 22 MMOL/L (20-31); CHLORIDE LEVEL 113 MMOL/L (98-107); CREATININE FOR GFR 0.68 MG/DL (0.70-1.30); GLOMERULAR FILTRATION RATE > 60.0 (>60); GLUCOSE, FASTING 103 MG/DL (60-100); MAGNESIUM LEVEL 1.7 MG/DL (1.8-2.4); PHOSPHORUS LEVEL 2.9 MG/DL (2.5-4.9); POTASSIUM SERUM 3.2 MMOL/L (3.5-5.1); SODIUM LEVEL 146 MMOL/L (136-145); TOTAL PROTEIN 5.5 G/DL (5.7-8.2)
[2023-01-21] MEDS: dexmedeTOMidine 200 MCG in IV 1 EA IV SCH ×2 (08:12→17:35)
[2023-01-21] MEDS: CHLORHEXIDINE GLUCONATE 0.12 % 15ML UDC (PERIDEX ORAL RINSE) MT SCH (08:12)
[2023-01-21] MEDS: HEPARIN SOD (PORCINE) 5000UNITS/ML 1ML VIAL/SYRINGE SC SCH (08:13)
[2023-01-21] MEDS: MAG SULF 1GM/100ML (MAG RUN) 1 GM in IV 1 EA IV SCH ×2 (08:44→10:03)
[2023-01-21] MEDS: POTASSIUM CHLORIDE 10% LIQ 20MEQ/15ML UDC PO SCH ×2 (08:44→13:37)
[2023-01-21 11:29] LABS: PROCALCITONIN 31.92 ng/ml
[2023-01-21] MEDS ORDERED: POTASSIUM CHLORIDE 10% LIQ 20MEQ/15ML UDC PO SCH (13:15)
[2023-01-21] MEDS ORDERED: LIDOCAINE 5% (LIDODERM) PATCH TD ONE (15:30)
[2023-01-21] MEDS ORDERED: ISOVUE-370 76% 100ML VIAL As Ordered ONE (16:23)
[2023-01-21] MEDS: HYDROMORPHONE HCL 0.5 MG/ 0.5 ML SYRINGE IV PRN ×2 (18:11→21:24)
[2023-01-21] MEDS: cefTRIAXone SOD 2 GM in D5W MINI-BAG PLUS 50 ML IV SCH (18:12)
[2023-01-21] MEDS: KETOROLAC 30 MG/ML 1ML VIAL IV PRN (20:04)
[2023-01-22] VITALS: BP 140/78; TEMP 98.3; O2SAT 98
[2023-01-22] MEDS: HYDROMORPHONE HCL 0.5 MG/ 0.5 ML SYRINGE IV PRN ×2 (00:08→03:31)
[2023-01-22] MEDS: KETOROLAC 30 MG/ML 1ML VIAL IV PRN (02:02)
[2023-01-22] MEDS: NS 1,000 ML IV SCH (03:28)
[2023-01-22 04:00] VITALS: BP 138/76; TEMP 98.1; O2SAT 98
== END 2023-01-22 05:29 | disposition left against medical advice (07) | DRG 133 ==
LOC: M ED 14:02 → EDBD 14:02 → M ED INP 01-20 00:13 → M ICU 01-20 00:52
PROVIDERS: ADMIT Internal Medicine; ATTEND Internal Medicine
DX: J96.01 Acute respiratory failure with hypoxia (principal); G93.41 Metabolic encephalopathy; E87.20 Acidosis, unspecified; I38 Endocarditis, valve unspecified; D69.6 Thrombocytopenia, unspecified; B19.20 Unspecified viral hepatitis C without hepatic coma; F14.90 Cocaine use, unspecified, uncomplicated; F15.90 Other stimulant use, unspecified, uncomplicated

== ENCOUNTER 2023-10-03 22:39 | Emergency (ER) | payer OTHER ==
[~2023-10-03] VITALS: Ht 167.6 cm; Wt 59.1 kg
[~2023-10-03 22:39] MED LIST changes: +MED HIST COMMENT
[2023-10-03] MEDS: cloNIDine 0.1MG TABLET PO ONE (23:21)
[2023-10-03] MEDS: THIAMINE 100 MG TAB PO SCH (23:21)
[2023-10-04 00:35] LABS: HEMATOCRIT 38.8 % (42.0-52.0); HEMOGLOBIN 13.7 g/dl (13.5-17.5); MEAN CORPUSCULAR HEMOGLOBIN 29.7 pg (27.0-33.0); MEAN CORPUSCULAR HGB CONC 35.3 g/dl (32.0-36.5); PLATELET COUNT, AUTOMATED 218 10^3/uL (150-450); RED BLOOD COUNT 4.62 10^6/uL (4.30-6.10); WHITE BLOOD COUNT 10.7 10^3/uL (4.0-10.0)
[2023-10-04 00:39] LABS: ETHYL ALCOHOL (ETHANOL) < 0.003 % (0.000-0.010)
[2023-10-04 00:41] LABS: ALBUMIN 3.4 G/DL (3.2-5.2); ALKALINE PHOSPHATASE 70 U/L (46-116); ALT/SGPT 59 U/L (7.0-40); AST/SGOT 42 U/L (<34); BILIRUBIN,DIRECT 0.3 MG/DL (<0.4); BILIRUBIN,TOTAL 0.6 MG/DL (0.3-1.2); BLOOD UREA NITROGEN 16 MG/DL (9-23); CALCIUM LEVEL 9.1 MG/DL (8.5-10.1); CARBON DIOXIDE LEVEL 26 MMOL/L (20-31); CHLORIDE LEVEL 108 MMOL/L (98-107); CK-MB VALUE MASS 8.9 NG/ML (<3.6); CPK CREATINE PHOSPHOKINASE 309 U/L (46-171); CREATININE FOR GFR 0.56 MG/DL (0.70-1.30); GLOMERULAR FILTRATION RATE > 60.0 (>60); GLUCOSE, FASTING 124 MG/DL (60-100); MB/CK RELATIVE INDEX 2.88 (< OR =4); POTASSIUM SERUM 3.4 MMOL/L (3.5-5.1); SALICYLATE LEVEL < 3.0 MG/DL (<30); SODIUM LEVEL 138 MMOL/L (136-145); TOTAL PROTEIN 7.1 G/DL (5.7-8.2)
[2023-10-04 00:43] LABS: THYROID STIMULATING HORMONE 0.175 uIU/ML (0.55-4.78)
[2023-10-04 00:49] LABS: AMPHETAMINES LEVEL URINE NEGATIVE (NEGATIVE); BARBITURATES URINE NEGATIVE (NEGATIVE); BENZODIAZEPINES URINE NEGATIVE (NEGATIVE); COCAINE METABOLITE URINE NEGATIVE (NEGATIVE); METHADONE URINE NEGATIVE (NEGATIVE); PHENCYCLIDINE URINE NEGATIVE (NEGATIVE)
[2023-10-04 01:05] LABS: CANNABINOIDS URINE POSITIVE (NEGATIVE); OPIATES URINE POSITIVE (NEGATIVE)
[2023-10-04] MEDS ORDERED: HYDR-3363 PO (02:28)
[2023-10-04] MEDS ORDERED: CLONI1TA PO (02:28)
[2023-10-04 02:37] VITALS: BP 128/97; TEMP 98.2; O2SAT 99
[2023-10-04] MEDS ORDERED: MULTIVITAMINS/MINERALS THERAP 1 TAB PO SCH (09:00)
[2023-10-04] MEDS ORDERED: FOLIC ACID 1MG TAB PO SCH (09:00)
== END 2023-10-04 02:45 | disposition home or self-care (01) ==
LOC: EDBD 22:39 → M ED 22:39
DX: F11.23 Opioid dependence with withdrawal (principal); Z79.810 Long term (current) use of selective estrogen receptor modulators (SERMs); Z79.811 Long term (current) use of aromatase inhibitors

== ENCOUNTER → 2024-09-14 | Outpatient (REF) | payer OTHER ==
[~2024-09-14] MED LIST changes: +CLONI1TA PO; +HYDR-3363 PO
[2024-09-14 15:15] LABS: HEMATOCRIT 47.7 % (42.0-52.0); HEMOGLOBIN 16.3 g/dl (13.5-17.5); MEAN CORPUSCULAR HEMOGLOBIN 31.6 pg (27.0-33.0); MEAN CORPUSCULAR HGB CONC 34.2 g/dl (32.0-36.5); MEAN CORPUSCULAR VOLUME 92.4 fl (80.0-96.0); PLATELET COUNT, AUTOMATED 159 10^3/uL (150-450); RED BLOOD COUNT 5.16 10^6/uL (4.30-6.10); WHITE BLOOD COUNT 8.9 10^3/uL (4.0-10.0)
[2024-09-14 15:41] LABS: ALKALINE PHOSPHATASE 69 U/L (40-129); ALT/SGPT 18 U/L (7.0-40); AST/SGOT 14 U/L (<34); BILIRUBIN,TOTAL 0.4 MG/DL (0.3-1.2); BLOOD UREA NITROGEN 17 MG/DL (9-23); CARBON DIOXIDE LEVEL 30 MMOL/L (20-31); CHLORIDE LEVEL 105 MMOL/L (98-107); CHOLESTEROL LEVEL 165 MG/DL (<200); CHOLESTEROL RISK RATIO 4.64 (<5); CREATININE FOR GFR 1.09 MG/DL (0.70-1.30); GLOMERULAR FILTRATION RATE > 60.0 (>60); GLUCOSE, FASTING 130 MG/DL (60-100); HDL CHOLESTEROL 35.5 MG/DL (>40); LDL CHOLESTEROL 105.1 MG/DL (<100); NON-HDL-C 129.5 MG/DL; POTASSIUM SERUM 4.3 MMOL/L (3.5-5.1); SODIUM LEVEL 142 MMOL/L (136-145); THYROID STIMULATING HORMONE 1.808 uIU/ML (0.55-4.78); TOTAL PROTEIN 7.2 G/DL (5.7-8.2); TRIGLYCERIDES LEVEL 122 MG/DL (<150)
[2024-09-14 15:42] LABS: TOTAL 25(OH) VITAMIN D 35.3 NG/ML (20.0-100.0)
[2024-09-14 16:06] LABS: HIV 1&2 SCREEN NEGATIVE (NEGATIVE)
[2024-09-14 17:01] LABS: HEMOGLOBIN A1c 4.6 % (4.0-6.0)
== END ==
LOC: M LAB REF 15:00
PROVIDERS: ATTEND Student in an Organized Health Care Education/Training Program
DX: Z00.01 Encounter for general adult medical examination with abnormal findings (principal); A64 Unspecified sexually transmitted disease